=== PATIENT | male | born 1995 | race Caucasian/White ===

== ENCOUNTER 2021-04-17 12:49 | Outpatient (CLI) | payer OTHER ==
--- NOTE | 2021-04-17 15:31 | MRI Report ---
PROCEDURE: Wrist LT W/O INDICATIONS: LEFT WRIST GANGLION TECHNIQUE: Noncontrast coronal proton density fast spin echo and T2 fast spin echo with fat saturation; coronal 3-D gradient echo, axial T1 spin echo and T2 fast spin echo with fat saturation, sagittal T1 spin ech o through the wrist. COMPARISON: None. FINDINGS: Image quality: Excellent. Bones and cartilage: The carpal bones are normally aligned. No bone marrow contusions or fractures. No evidence for avascular necrosis. Overlying cartilage surfaces appear normal. Carpal ligaments: The scapholunate and lunotriquetral ligaments appear intact. In the absence of in tra-articular contrast, the extrinsic carpal ligaments are not well identified. On sagittal images, the pisohamate ligament appears intact. Triangular fibrocartilage complex: Subtle signal abnormality involving ulnar periphery of triangular fibrocartilage near its ulnar insertion concerning for focal subtle tear in this region. The adjacent meniscal homolog appears normal in the absence of intra-articular contrast. The extensor carpi ulna ris tendon is normal in location and morphology. Tendons and soft tissues: The carpal tunnel structures appear normal, including the median nerve. T he ulnar nerve appears normal within Guyon?s canal. All six extensor tendon compartments demonstrate normal morphology, without pathologic tendon sheath fluid. Lobulated cystic structure over dorsal an d ulnar aspect of wrist just superficial to the extensor digiti minimi tendon and extensor digitorum and indices tendons is seen and measures up to 1.6 x 1 x 1.4 cm in size and likely represent a gangli on cyst. IMPRESSION: 1. Finding is concerning for subtle tear of triangular fibrocartilage near its ulnar insertion. 2. 1.6 x 1 x 1.4 cm ganglion cyst over dorsal and medial aspect of wrist joint over the extensor digi ti minimi tendon and extensor digitorum and indices tendons. 3. Intrinsic and extrinsic wrist ligaments are grossly intact. 4. Extensor and flexor tendons are grossly intact. Reviewed by: Christian Decker MD on 04/17/2021 3:30 PM PDT Approved by: Christian Decker MD on 04/17/2021 3:30 PM PDT Station ID: [id number]
== END 2021-04-17 12:50 | disposition home or self-care (01) ==
LOC: DI 12:49
PROVIDERS: ATTEND Student in an Organized Health Care Education/Training Program
DX: M67.432 Ganglion, left wrist (principal)